=== PATIENT | female | born 1960 | race African-American/Black ===

== ENCOUNTER 2023-02-09 14:05 | Emergency (ER) | payer BC, OTHER ==
[~2023-02-09] VITALS: Ht 170.2 cm; Wt 63.5 kg
[2023-02-09 14:36] VITALS: BP 137/96; PULSE 67; RESP 15; TEMP 97.8; O2SAT 100
== END 2023-02-09 15:04 | disposition left against medical advice (07) ==
LOC: MED 14:05
DX: R42 Dizziness and giddiness (principal); Z53.21 Procedure and treatment not carried out due to patient leaving prior to being seen by health care provider
CPT/HCPCS: 82948; 99281